=== PATIENT | male | born 1970 | race Caucasian/White ===

== ENCOUNTER 2017-12-07 10:45 | Inpatient (IN) | payer OTHER ==
[2017-12-06 16:15] VITALS: BMI 41.1
[2017-12-07] MEDS ORDERED: LIDOCAINE HCL/PF 2% SDV 5ML VIAL ONE (12:56)
[2017-12-07] MEDS ORDERED: fentaNYL CITRATE 250 MCG/5 ML VIAL ONE (12:58)
[2017-12-07] MEDS ORDERED: ceFAZolin SODIUM 1 GM VIAL IVPB ONE (13:03)
[2017-12-07] MEDS ORDERED: DEXAMETHASONE SOD PHOSPHATE 4 MG/1 ML VIAL ONE (14:07)
[2017-12-07] MEDS ORDERED: GLYCOPYRROLATE 0.2 MG/1 ML VIAL ONE (14:16)
[2017-12-07] MEDS ORDERED: NEOSTIGMINE METHYLSULFATE 0.5 MG/ML - 10 ML MDV ONE (14:16)
[2017-12-07] MEDS ORDERED: BUPIVACAINE HCL/PF 0.5% (5MG/ML) 10 ML VIAL IJ ONE ×2 (14:25→14:44)
--- NOTE | 2017-12-07 15:15 | OP ---
Operative Note - Note: Operative Date: 12/07/17 Pre-Operative Diagnosis: Morbid Obesity. Diabetes Mellitus. Asthma Operation: Laparoscopic Vertical Sleeve Gastrectomy. Wedge Biopsy of left lobe of liver. Diagnostic Laparoscopy Findings: Greater curve sleeve gastrectomy performed with #[address] Enlarged liver found and wedge biopsy performed on left lobe. Implants: none Post-Operative Diagnosis: Same as Pre-op (hepatomegaly) Surgeon: Juan Jose Preciado Teletype Installer: Nic Pavon Anesthesia: General Specimens Removed: Greater curve of stomach. Wedge biopsy of liver left lobe Estimated Blood Loss (mls): 30 Operative Report Dictated: Yes
[2017-12-07] MEDS ORDERED: IBUPROFEN 800 MG/8 ML IJ IVPB PRN (15:17)
[2017-12-07] MEDS ORDERED: ONDANSETRON 4 MG/2 ML VIAL IVPUSH PRN (15:17)
--- NOTE | 2017-12-07 15:23 | OP ---
Operative Note - Note: Operative Date: 12/07/17 Pre-Operative Diagnosis: Morbid obesity. Rule out leak/obstruction s/p sleeve gastrectomy Operation: EGD/Upper endoscopy Findings: No leak/obstruction Post-Operative Diagnosis: Same as Pre-op Surgeon: Nic Pavon Anesthesia: General Specimens Removed: none Estimated Blood Loss (mls): 0 Operative Report Dictated: Yes
[2017-12-07] MEDS ORDERED: LACTATED RINGERS SOLUTION 1,000 ML IV SCH (15:30)
[2017-12-07] MEDS: METOCLOPRAMIDE HCL INJECTION 10 MG/2 ML VIAL IVPUSH SCH ×2 (15:30→21:21)
[2017-12-07] MEDS ORDERED: METOCLOPRAMIDE HCL INJECTION 10 MG/2 ML VIAL ONE (15:32)
--- NOTE | 2017-12-07 15:46 | OP ---
DATE OF OPERATION: 12/07/2017 SURGEON: Og Pavon MD PREOPERATIVE DIAGNOSIS: Rule out leak/obstruction after vertical sleeve gastrectomy done by Dr. Juan Jose Preciado. POSTOPERATIVE DIAGNOSIS: No leak. No obstruction. PROCEDURE: Upper endoscopy/esophagogastroduodenoscopy. SPECIMEN: None. ESTIMATED BLOOD LOSS: 0 mL REASON FOR PROCEDURE: This is a 47-year-old gentleman undergoing a laparoscopic vertical sleeve gastrectomy by Dr. uJan Jose Preciado. After the stomach was stapled, a request for an upper endoscopy was requested. Upper endoscopy was performed to evaluate for leak/obstruction. The endoscope was inserted into the patient's mouth. The entirety of the esophagus, GE junction, gastric staple line and pouch were inspected. Hemostasis was noted. No leak or obstruction was noted. The stomach was suctioned and the scope removed. The remainder of the procedure was continued. OG PAVON M.D. [id number]
[2017-12-07] MEDS ORDERED: ONDANSETRON 4 MG/2 ML VIAL ONE (15:53)
--- NOTE | 2017-12-07 15:59 | OP ---
DATE OF OPERATION: 12/07/2017 PREOPERATIVE DIAGNOSES: 1. Morbid obesity. 2. Diabetes mellitus. 3. Asthma. POSTOPERATIVE DIAGNOSES: 1. Morbid obesity. 2. Diabetes mellitus. 3. Asthma. 4. Hepatomegaly. PROCEDURE PERFORMED: 1. Laparoscopic vertical sleeve gastrectomy. 2. Wedge biopsy of the left lobe of the liver. 3. Diagnostic laparoscopy. OPERATING SURGEON: Juan Jose Preciado MD JACK STRIP ASSEMBLER: Nic Pavon MD ANESTHESIA: General. OPERATIVE PROCEDURE: The patient was brought into the operating room, placed on the OR table in the supine position. All precautions were taken initially including padding for the back and the feet, and Venodyne boots were placed on both lower extremities. At that point, the abdomen was prepped and draped in the usual manner. A Veress needle was placed in the left upper quadrant, and a pneumoperitoneum was established. A number 12 bladeless trocar was placed in the left upper quadrant. Through that trocar, a laparoscopic camera was placed. Under direct vision, a number 15 bladeless trocar was placed in the midline in a supraumbilical position, followed by a number 5 bladeless trocar in the right upper quadrant and a number 5 bladeless trocar below the left costal margin. A Eamon liver retractor was then placed in the epigastrium to retract the left lobe of the liver. The left lobe was noted to be extremely enlarged, and therefore, it was decided that a biopsy would be performed. On the undersurface edge of the left lobe of the liver, the LigaSure device was able to make a wedge-shaped biopsy and sent off the field as a specimen to Pathology. There was some minor bleeding from the parenchyma, which was easily controlled with the electrocautery from the LigaSure. At this juncture, Anesthesia placed the patient in a 20-degree reverse Trendelenburg position. The pylorus was noted on the distal stomach, and 6 cm was measured proximally from there. Here, on the greater curve, the operating surgeon lifted the stomach toward the anterior abdominal wall as the warehouse assistant surgeon retracted the gastrocolic ligament inferiorly. The LigaSure device was now used to dissect the gastrocolic ligament off the greater curve of stomach. This continued in a superior and vertical direction until the final short gastric vessels between the superior pole of the spleen and the proximal fundus were divided. At this juncture, Anesthesia passed a number 40 bougie. With the bougie held along the lesser curvature, a series of mireya was performed with the first two being black load mireya, 6 cm in length along the bougie. This was followed by a series of purple-load mireya, also 6 cm along the bougie until a final staple was fired in the left upper quadrant, and the greater curve was now completely detached from the lesser curve. It should be noted that prior to firing each staple, both the anterior and posterior hurst of the remaining lesser curvature were checked that they were equal, and in the area of the esophagogastric junction approximately 1 to 1.5 cm serosa remained on the anterior and posterior surfaces. At this juncture, Dr. Pavon, the warehouse assistant surgeon, stepped out of the case and performed an upper endoscopy. The details will be described in his operative note, but it showed that there were no leaks from the staple line, and he was able to pass the scope all the way to the antrum, showing no obstruction. At this juncture, some Surgicel was placed in the left upper quadrant by the spleen and the area of the resected gastric greater curve of stomach. At this point, the stomach specimen from the greater curve was removed and sent off the field through the number 15 trocar site and sent to Pathology. Under direct vision, the number 15 and 12 trocar sites were closed with Endo Closure device to prevent internal hernia and to prevent bleeding. Under direct vision, all trocars were removed, and pneumoperitoneum was released. All trocar sites received 0.50% Marcaine and were closed with 4-0 Biosyn in subcuticular fashion. The number 15 trocar site was first closed with 3-0 Vicryl in the subcutaneous tissue, followed by 4-0 Biosyn in the subcuticular tissue. Dressings were applied. Patient awoke from anesthesia and transferred out of the operating room to the recovery room in stable condition. EXPECTED BLOOD LOSS: 30 mL Kassandra [id number]
[2017-12-07 16:20] LABS: HEMATOCRIT 44.2 % (35.4-49); MCH 29.3 pg (25.7-33.7); MEAN CELL VOLUME 86.2 fl (80-96); MEAN PLT VOLUME 8.3 fl (7.5-11.1); PLATELET COUNT 264 K/MM3 (134-434); RBC 5.13 M/mm3 (4.00-5.60); RDW 14.4 % (11.9-15.9); WHITE BLOOD COUNT 18.1 K/mm3 (4.0-10.0)
[2017-12-07 16:48] LABS: ALBUMIN 3.5 g/dl (3.4-5.0); ANION GAP 5 (8-16); BLOOD UREA NITROGEN 10 mg/dL (7-18); CALCIUM 8.7 mg/dL (8.5-10.1); CHLORIDE 108 mmol/L (98-107); CO2 28 mmol/L (21-32); GLUCOSE,RANDOM 183 mg/dL (74-106); POTASSIUM 4.2 mmol/L (3.5-5.1); SODIUM 141 mmol/L (136-145)
[2017-12-07 16:51] LABS: ALK PHOS 94 U/L (45-117); BILIRUBIN,TOTAL 0.9 mg/dL (0.2-1.0); CREATININE 0.8 mg/dL (0.7-1.3); SGOT/AST 74 U/L (15-37); SGPT/ALT 93 U/L (12-78); TOT PROT 6.8 g/dl (6.4-8.2)
[2017-12-07] MEDS: SODIUM CHLORIDE 1,000 ML IV SCH (18:23)
[2017-12-07] MEDS: ENOXAPARIN NA (PORCINE) 40 MG/0.4 ML DISP.SYRIN SQ SCH (21:14)
[2017-12-07] MEDS: FAMOTIDINE 20 MG/50 ML IVPB 20 MG/50 ML MG IVPB SCH (21:14)
[2017-12-07] MEDS: MEPERIDINE HCL CARPU-JECT 50 MG/1 ML DISP.SYRIN IM PRN (21:14)
[2017-12-08] MEDS: METOCLOPRAMIDE HCL INJECTION 10 MG/2 ML VIAL IVPUSH SCH ×3 (02:55→15:24)
[2017-12-08] MEDS: SODIUM CHLORIDE 1,000 ML IV SCH (02:56)
[2017-12-08] MEDS: MEPERIDINE HCL CARPU-JECT 50 MG/1 ML DISP.SYRIN IM PRN ×2 (02:56→15:30)
[2017-12-08 07:41] LABS: HEMATOCRIT 44.1 % (35.4-49); HEMOGLOBIN 14.5 GM/dL (11.7-16.9); MCH 28.2 pg (25.7-33.7); MCHC 32.9 g/dl (32.0-35.9); MEAN CELL VOLUME 85.7 fl (80-96); MEAN PLT VOLUME 7.9 fl (7.5-11.1); PLATELET COUNT 283 K/MM3 (134-434); RBC 5.14 M/mm3 (4.00-5.60); RDW 14.3 % (11.9-15.9); WHITE BLOOD COUNT 16.7 K/mm3 (4.0-10.0)
[2017-12-08 08:06] LABS: ALBUMIN 3.3 g/dl (3.4-5.0); BLOOD UREA NITROGEN 10 mg/dL (7-18); CALCIUM 8.3 mg/dL (8.5-10.1); CHLORIDE 107 mmol/L (98-107); GLUCOSE,RANDOM 164 mg/dL (74-106); POTASSIUM 3.9 mmol/L (3.5-5.1); SODIUM 141 mmol/L (136-145)
[2017-12-08 08:25] LABS: ALK PHOS 85 U/L (45-117); ANION GAP 9 (8-16); BILIRUBIN,TOTAL 1.3 mg/dL (0.2-1.0); CO2 25 mmol/L (21-32); CREATININE 0.8 mg/dL (0.7-1.3); SGOT/AST 53 U/L (15-37); SGPT/ALT 88 U/L (12-78); TOT PROT 6.7 g/dl (6.4-8.2)
[2017-12-08] MEDS: ENOXAPARIN NA (PORCINE) 40 MG/0.4 ML DISP.SYRIN SQ SCH (09:51)
[2017-12-08] MEDS: FAMOTIDINE 20 MG/50 ML IVPB 20 MG/50 ML MG IVPB SCH (09:56)
[2017-12-08] MEDS ORDERED: oxyCODONE HCL 5 MG TABLET PO PRN (12:05)
[2017-12-08] MEDS ORDERED: ACETAMINOPHEN 325 MG TABLET (FP) PO PRN (12:05)
[2017-12-08] MEDS ORDERED: SODIUM CHLORIDE 1,000 ML IV SCH (12:15)
[2017-12-08] MEDS ORDERED: PNEUMOC 13-VAL CONJ-DIP CRM/PF 0.5 ML DISP.SYRIN IM ONE (13:00)
[2017-12-08 13:53] VITALS: BP 119/81; PULSE 60; TEMP 98.7
--- NOTE | 2017-12-08 14:14 | PN ---
Progress Note (short form) - Note Progress Note: Anesthesia postop note 47 y/o M s/p GA for gastric sleeve POD#1, vss, aaox3, pain well controlled, ambulating No anesthesia complications.
--- NOTE | 2017-12-08 15:27 | PN ---
Progress Note (short form) - Note Progress Note: POD#1 Afebrile; VSS Pt doing well No N/V Tolerating PO clear liquids- 2 oz po tid P/E- Abd- all trocar sites clean, dry Ext- no swelling noted WBC-16.7 H/H-14.5/44.1 UGI- no leak, no obstruction P- D/C home PO clear liquids- 3 oz po 4-5 times per day F/U with DR Preciado in 6 days
--- NOTE | 2017-12-11 15:57 | PATH ---
Surgical Pathology Report Patient Name: YUDI MAYER [facility]. Rec. #: [id number] /Age/Gender: 1970 (Age: 47) / M Account: [id number] Location: 4 SO PEDS/ADOL Taken: 12/08/2017 Received: 12/08/2017 Reported: 12/11/2017 Physicians: Juan Jose Preciado M.D. Specimen(s) Received A: GREATER CURVATURE STOMACH B: LIVER BIOPSY Clinical History Morbid obesity Final Diagnosis A. STOMACH, GREATER CURVATURE, LAPAROSCOPIC VERTICAL SLEEVE GASTRECTOMY: PORTION OF STOMACH WITH MILD TO MODERATE CHRONIC GASTRITIS. IMMUNOHISTOCHEMICAL STAIN FOR H. PYLORI IS NEGATIVE. B. LIVER, BIOPSY: STEATOHEPATITIS, MILD; MODERATE STEATOSIS (~50%). MILD FOCAL PERIVENULAR, MILD PERISINUSOIDAL, MILD PORTAL AND FOCAL PERIPORTAL FIBROSIS (STAGE I OF 4). SEE COMMENT. Comment: Biopsy is subcapsular. The liver parenchyma demonstrates moderate mixed micro and macrovesicular steatosis (~50%). Focal lymphocytic infiltrate is seen in portal tracts. No significant interface activity is present. No significant bile injury is seen. No granulomas are present. Focal hepatocyte ballooning is noted. Rare derek hyaline is identified. The trichrome stain highlights mild perivenular, mild perisinusoidal, mild portal and focal periportal fibrosis. No increase in Iron identified by Iron special stain. Overall, findings show mild steatohepatitis and moderate steatosis; stage 1 of 4 (Brunt). Etiologies include alcohol and non-alcoholic liver injury including metabolic conditions, drug or toxin injury. Suggest clinical and serologic correlation. Electronically Signed Andreea Mcbride M.D. Gross Description A. Received in formalin, labeled "greater curvature of stomach," is an 83 gram, 14.5 x 3.0 x 3.0 cm. portion of stomach with a stapled margin of resection. The serosa is joshua-esparza with minimal attached fat. The mucosa is joshua-pink with normal folds. No mucosal masses are identified. Cereal Popper sections are submitted in one cassette. B. Received in formalin labeled "liver biopsy left lobe," is a 2.5 x 1.7 x 1.0 cm joshua, irregular portion of liver. The specimen is sectioned and quality audit representative sections are submitted in one cassette. DL/[facility]08[facility]2017 [facility]
== END 2017-12-08 16:44 | disposition home or self-care (01) | DRG 621 ==
LOC: JSAMEDAYSX 10:45 → EDSTATUS 12:30 → J4S 17:55
PROVIDERS: ADMIT Surgery; ATTEND Surgery
PROC: 0DB64Z3 Excision of Stomach, Percutaneous Endoscopic Approach, Vertical (ICD-10-PCS; principal; 2017-12-07 12:00)
PROC: 0FB24ZX Excision of Left Lobe Liver, Percutaneous Endoscopic Approach, Diagnostic (ICD-10-PCS; 2017-12-07 12:00)
PROC: 0DJ08ZZ Inspection of Upper Intestinal Tract, Via Natural or Artificial Opening Endoscopic (ICD-10-PCS; 2017-12-07 12:00)
DX: E66.01 Morbid (severe) obesity due to excess calories (principal); E11.9 Type 2 diabetes mellitus without complications; J45.909 Unspecified asthma, uncomplicated; R16.0 Hepatomegaly, not elsewhere classified; Z68.41 Body mass index [BMI] 40.0-44.9, adult; Z71.3 Dietary counseling and surveillance
CPT/HCPCS: 36415; 74241-TC-FY; 80053; 82962; 85027; 86850; 86900; 86901; 88307-TC; 90670; 94010; 94760; J7030

== ENCOUNTER 2023-10-19 09:12 | Emergency (ER) | payer OTHER ==
[2023-10-19 09:19] VITALS: BP 137/95; PULSE 94; RESP 18; TEMP 99.5; BMI 38.2
[2023-10-19] MEDS ORDERED: DIPHTH,PERTUSS(ACELL),TET 0.5 ML DISP.SYRIN IM ONE (10:08)
[2023-10-19] MEDS: DIPHTH,PERTUSS(ACELL),TET 0.5 ML DISP.SYRIN IM ONE (10:08)
== END 2023-10-19 10:53 | disposition home or self-care (01) ==
LOC: FER 09:12
PROC: 3E0234Z Introduction of Serum, Toxoid and Vaccine into Muscle, Percutaneous Approach (ICD-10-PCS; principal; 2023-10-19)
DX: M25.512 Pain in left shoulder (principal); S42.255A Nondisplaced fracture of greater tuberosity of left humerus, initial encounter for closed fracture; W01.0XXA Fall on same level from slipping, tripping and stumbling without subsequent striking against object, initial encounter; Y92.009 Unspecified place in unspecified non-institutional (private) residence as the place of occurrence of the external cause
CPT/HCPCS: 73030-TC-LT-FY; 90715; 99283-25